=== PATIENT | female | born 1995 | race Caucasian/White ===

== ENCOUNTER 2019-07-05 21:28 | Emergency (ER) | payer OTHER ==
[~2019-07-05] VITALS: Ht 172.7 cm; Wt 59.0 kg
[2019-07-05 21:40] VITALS: BP 118/64
--- NOTE | 2019-07-05 21:46 | NUR ---
AMBULATED TO ER BED 4
--- NOTE | 2019-07-05 21:53 | NUR ---
24 YEAR OLD MALE COMPLAINS OF RASH THROUGHOUT BODY X 2 DAYS. PATIENT DENIES ANY SHORTNESS OF BREATHE. VISIBLE RASH PRESENT, REDDENED. PATIENT AOX4, BREATHING EVEN AND UNLABORED, SKIN WARM AND DRY. BED IN LOWEST POSITION, LOCKED, BED RAIL UPX1. ERMD AWARE OF PT STATUS. MOTHER AT BEDSIDE. PMH - DENIES ALLERGIES - NKA
--- NOTE | 2019-07-05 22:20 | NUR ---
Patient discharged with v/s stable. Written and verbal after care instructions about hives given and explained. Patient alert, oriented and verbalized understanding of instructions. Ambulatory with steady gait. All questions addressed prior to discharge. ID band removed. Patient advised to follow up with PMD. Rx of prednisone given. Patient educated on indication of medication including possible reaction and side effects. Opportunity to ask questions provided and answered.
[2019-07-05 22:32] VITALS: BP 118/64
== END 2019-07-05 22:22 | disposition home or self-care (01) ==
LOC: MED 21:28
DX: L50.9 Urticaria, unspecified (principal)
CPT/HCPCS: 99283; Q0163